=== PATIENT | male | born 1965 | race Caucasian/White ===

== ENCOUNTER 2017-03-21 12:57 | Outpatient (CLI) | payer OTHER | END 2017-03-21 12:58 | disposition home or self-care (01) | DX: S56.511A Strain of other extensor muscle, fascia and tendon at forearm level, right arm, initial encounter (principal); M67.921 Unspecified disorder of synovium and tendon, right upper arm ==

== ENCOUNTER 2017-03-25 13:06 | Outpatient (CLI) | payer OTHER ==
[2017-03-25] MEDS ORDERED: IOTHALAMATE MEGLUMINE 50 ML VIAL IVP ONE ×2 (14:25)
[2017-03-25] MEDS ORDERED: LIDOCAINE-MPF 1% 5 ML VIAL TD ONE ×2 (14:25)
[2017-03-25] MEDS ORDERED: BUFFERED LIDOCAINE 10 ML SYRINGE IU ONE (14:25)
[2017-03-25] MEDS ORDERED: GADOPENTETATE DIMEGLUMINE 5 ML VIAL IVP ONE ×2 (14:25)
== END 2017-03-25 13:07 | disposition home or self-care (01) ==
DX: R93.7 Abnormal findings on diagnostic imaging of other parts of musculoskeletal system (principal)
CPT/HCPCS: 20610; 73722; 77002; Q9961

== ENCOUNTER 2017-06-24 10:08 | Day surgery (SDC) | payer OTHER ==
[2017-06-24] MEDS ORDERED: LACTATED RINGERS 1,000 ML IV ONE (10:50)
[2017-06-24] MEDS ORDERED: MIDAZOLAM 2 MG/2 ML VIAL IVP ONE (11:05)
[2017-06-24] MEDS ORDERED: fentaNYL 100 MCG/2 ML VIAL IVP ONE (11:05)
[2017-06-24] MEDS ORDERED: LIDO GARGLE 30 ML BOTTLE TOP ONE (11:27)
[2017-06-24] MEDS ORDERED: BENZOCAINE/TETRACAINE/BUTAMBEN SPRAY 56 GM TOP ONE (11:27)
[2017-06-24 12:57] VITALS: BP 119/86
== END 2017-06-24 10:09 | disposition home or self-care (01) ==
LOC: SDS 10:08
PROVIDERS: ATTEND Surgery
PROC: 0DB78ZX Excision of Stomach, Pylorus, Via Natural or Artificial Opening Endoscopic, Diagnostic (ICD-10-PCS; 2017-06-24)
PROC: 0DJD8ZZ Inspection of Lower Intestinal Tract, Via Natural or Artificial Opening Endoscopic (ICD-10-PCS; principal; 2017-06-24 11:15)
PROC: 0DB38ZX Excision of Lower Esophagus, Via Natural or Artificial Opening Endoscopic, Diagnostic (ICD-10-PCS; 2017-06-24 11:15)
DX: Z12.11 Encounter for screening for malignant neoplasm of colon (principal); K57.30 Diverticulosis of large intestine without perforation or abscess without bleeding; K64.8 Other hemorrhoids; R12 Heartburn; K21.9 Gastro-esophageal reflux disease without esophagitis; K44.9 Diaphragmatic hernia without obstruction or gangrene; K20.9 Esophagitis, unspecified; K29.80 Duodenitis without bleeding
CPT/HCPCS: 43239; 45378; 87081; A9270; J7120; 88305

== ENCOUNTER 2017-08-06 06:21 | Day surgery (SDC) | payer OTHER ==
[2017-08-06] MEDS ORDERED: CELECOXIB 100 MG CAPSULE PO ONE (06:29)
[2017-08-06] MEDS ORDERED: ceFAZolin 2 GM/50 ML 2 GM/50 ML BAG IV ONE (06:29)
[2017-08-06] MEDS ORDERED: ACETAMINOPHEN 1,000 MG/100 ML 100 ML IV ONE ×2 (06:29→07:30)
[2017-08-06] MEDS ORDERED: LACTATED RINGERS 1,000 ML IV ONE (06:35)
[2017-08-06] MEDS ORDERED: ROCURONIUM 50 MG/5 ML VIAL IVP ONE (07:30)
[2017-08-06] MEDS ORDERED: fentaNYL 100 MCG/2 ML VIAL IVP ONE (07:30)
[2017-08-06] MEDS ORDERED: MIDAZOLAM 2 MG/2 ML VIAL IVP ONE (07:30)
[2017-08-06] MEDS ORDERED: PROPOFOL 200 MG/20 ML VIAL IVP ONE (07:30)
[2017-08-06] MEDS ORDERED: DEXAMETHASONE 4 MG/ML VIAL IVP ONE (07:30)
[2017-08-06] MEDS ORDERED: KETOROLAC 30 MG/ML VIAL IVP ONE (07:30)
[2017-08-06] MEDS ORDERED: SUCCINYLCHOLINE 200 MG/10 ML VIAL IVP ONE (07:30)
[2017-08-06] MEDS ORDERED: LIDOCAINE-MPF 2% 5 ML VIAL IM ONE (07:30)
[2017-08-06] MEDS ORDERED: ONDANSETRON 4 MG/2 ML VIAL IVP ONE (07:30)
[2017-08-06] MEDS ORDERED: BUPIVACAINE 0.5% PF 30 ML VIAL INFIL ONE ×2 (08:20→08:49)
[2017-08-06] MEDS: fentaNYL 100 MCG/2 ML VIAL ONE ×3 (09:37→09:50)
[2017-08-06 10:27] VITALS: BP 132/85
--- NOTE | 2017-08-06 13:40 | OPERATIVE REPORT ---
DATE OF SURGERY: 08/06/2017 00:00:00 OPERATIVE SURGEON: Commander Dayday Brown, [employer]. PROVER SURGEON: Lieutenant Commander Garrick Cheatham[employer]. PREOPERATIVE DIAGNOSES 1. Right olecranon spur. 2. Right triceps tendinosis. OPERATIVE DIAGNOSES 1. Right olecranon spur. 2. Right triceps tendinosis. OPERATIVE PROCEDURE PERFORMED: Open right olecranon spur excision, triceps exploration ANESTHESIA PROVIDER: Roberto Mistry CRNA. ANESTHESIA TECHNIQUE: General endotracheal tube anesthesia with local field block. CIRCULATING NURSES: Dayday Smith RN; and Ms. Catie Dial. DAY CARE WORKER: Ms. Danii Connelly RN. START TIME: 0814. END TIME: 08. INJECTED SUBSTANCES INCLUDE: Marcaine 0.5% plain 13 mL subcutaneously. INTRAVENOUS FLUIDS: 1200 mL of lactated Ringer's. PREOPERATIVE ANTIBIOTICS: Ancef 2 grams. ESTIMATED BLOOD LOSS: Less than 5 mL. PREOPERATIVE PREP: ChloraPrep. The patient had BALTAZAR hose and foot pumps in place and functioning prior to induction of anesthesia. TOURNIQUET TIME: 40 minutes at 250 mmHg. SPECIMEN SUBMITTED: Right olecranon spur. COMPLICATIONS: None. 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 The patient was counseled as far as the findings and options for operative versus nonoperative management, including the risks, benefits, alternatives, complications and expectations to both operative and nonoperative management. He preferred to have surgery. He previously had the left elbow done for the same diagnosis with good results. The patient gave informed consent. On the day of surgery, he identified the operative site to be his right elbow and was initialed by the operative surgeon. The patient was taken back to the operating room and placed in the supine position. He received his preoperative antibiotics and underwent general endotracheal tube anesthesia. Following adequate anesthetic control, the patient was placed into the left lateral decubitus position, ensuring his head, neck, groin and bony prominences were in a safe, well-padded position. Following this, the patient had a tourniquet placed to the right upper brachium. He underwent ChloraPrep, followed by standard sterile dressing draping and a surgical pause to confirm the proper patient, procedure, operative site, position, prophylactic antibiotics, surgical initials, and surgical instrumentation in accordance with universal protocol procedure verification. Following this, additional ChloraPrep was applied to the exposed operative skin, allowed to dry for 3 minutes. The bony landmarks were outlined. A curvilinear incision was outlined followed by Esmarch exsanguination of the right upper extremity with inflation of the tourniquet to 250 mmHg. This was followed by sharp curvilinear incision with Bovie electrocautery for hemostasis and blunt dissection down through the subcutaneous tissue and tricept tendon to the olecranon, where a needle tip Bovie was used for subperiosteal dissection to expose the loose olecranon spur. This was then excised, and the distal olecranon smoothed with a rasp. The triceps tendon was opened and explored. There was no significant tendinosis that required debridement. Fluoroscopy was then used to confirm adequate resection of the olecranon spur. Copious irrigation was then performed. The triceps tendon was closed with 2-0 Vicryl. The subcutaneous tissue was closed with 2-0 Vicryl followed by 3-0 Monocryl. The wound was then injected with 0.5% Marcaine plain, and covered with Mastisol, Steri-Strips, Xeroform, sterile plain gauze, sterile Webril and an Mj bandage. The tourniquet was then deflated at 40 minutes. The patient was then returned to the supine position, extubated, and taken to recovery in stable condition. He tolerated the procedure well. His was contacted via telephone regarding the intra- operative findings and post-op instructions. Edited and electronically signed: CDR Dayday Brown [employer], [employer] [id number] JOB #: [id number] EXT JOB #:[id number] CYNTHIA
== END 2017-08-06 06:22 | disposition home or self-care (01) ==
LOC: SDS 06:21
PROVIDERS: ATTEND Orthopaedic Surgery
PROC: 0PBH0ZZ Excision of Right Radius, Open Approach (ICD-10-PCS; principal; 2017-08-06 07:30)
DX: M25.721 Osteophyte, right elbow (principal); S46.312A Strain of muscle, fascia and tendon of triceps, left arm, initial encounter
CPT/HCPCS: 24147; A9270; J0131; J0690; J7120

== ENCOUNTER 2017-09-30 13:04 | Outpatient (CLI) | payer OTHER | END 2017-09-30 13:05 | disposition home or self-care (01) | LOC: SC 13:04 | PROVIDERS: ATTEND Internal Medicine Pulmonary Disease | DX: G47.33 Obstructive sleep apnea (adult) (pediatric) (principal) | CPT/HCPCS: 99203; 99212 ==

== ENCOUNTER 2017-11-17 09:13 | Outpatient (CLI) | payer OTHER | END 2017-11-17 09:14 | disposition home or self-care (01) | LOC: SC 09:13 | PROVIDERS: ATTEND Internal Medicine Pulmonary Disease | DX: G47.33 Obstructive sleep apnea (adult) (pediatric) (principal) | CPT/HCPCS: 99212; 99213 ==

== ENCOUNTER 2018-07-03 08:34 | Outpatient (CLI) | payer OTHER ==
--- NOTE | 2018-07-03 16:23 | MRI Report ---
Reason: PAIN IN RIGHT ELBOW Procedure Date: 07/03/2018 Accession Number: [id number] / [id number] Procedure: MRI - Elbow RT W/O CPT Code: FULL RESULT: EXAM: RIGHT ELBOW MRI WITHOUT CONTRAST EXAM DATE: 07/03/2018 08:51 AM. CLINICAL HISTORY: Post surgery. Patient reports bone spur removal 07/06/2017. COMPARISON: MRI 03/21/2017 and radiographs 08/16/2016. TECHNIQUE: Multiplanar, multisequence T1-weighted and fluid-sensitive sequences of the elbow without contrast. Other: None. FINDINGS: Bones: No fracture or bone lesion. Mild bone marrow edema and reactive cyst at the posterior medial aspect of the capitellum. This involves a region measuring 0.8 cm AP and is increased in conspicuity. Subtle osteophyte at the posterior margin of this site. Mild bone marrow edema at the posterior medial aspect of the olecranon, slightly increased. Articular Cartilage: Diffuse deep partial-thickness cartilage loss throughout the joint. Small ulnar trochlear osteophytes. Ligaments: Ulnar collateral, radial collateral, and annular ligaments are intact. Distortion and fluid sensitive hyperintense signal at the humeral insertion lateral ulnar collateral ligament (coronal images 16, 17, and 18 of series 901). Tendons: Ulnar collateral ligament normal in morphology. Mild thickening and subtle hyperintense signal at the common extensor tendon origin, slightly decreased in conspicuity. Biceps and brachialis tendons are intact. Moderate thickening, fluid sensitive hyperintense signal, and distortion at the triceps tendon extending from the myotendinous junction to the insertion. The lateral 50% of the tendon fibers appear intact at the insertion. Disruption of the medial 50% of the insertion with the free end of the fibers located 0.5 cm from the olecranon (axial image 17 of series 601). Musculature: No fatty atrophy. Minimal edema in the distal triceps muscle. Other: The cubital tunnel and ulnar nerve are unremarkable. Minimal joint effusion. Minimal subcutaneous edema over the posterior and medial aspect of the joint. IMPRESSION: 1. Moderate triceps tendinopathy with disruption of the medial 50% of the fibers at the insertion. 2. Slightly increased bone marrow edema at the olecranon. This may be postsurgical and/or reactive. 3. [id number] degenerative changes with slightly increased bone marrow edema and cystic changes at the capitellum. 4. Minimal joint effusion. 5. Mild common extensor tendinopathy and minimal intrasubstance tearing. 5. Reactive edema versus strain at the humeral insertion lateral ulnar collateral ligament. RADIA MUSCULOSKELETAL RADIOLOGY SECTION
== END 2018-07-03 08:35 | disposition home or self-care (01) ==
LOC: DI 08:34
PROVIDERS: ATTEND Student in an Organized Health Care Education/Training Program
DX: M19.021 Primary osteoarthritis, right elbow (principal); M67.921 Unspecified disorder of synovium and tendon, right upper arm

== ENCOUNTER 2018-09-03 11:08 | Day surgery (SDC) | payer OTHER ==
[~2018-09-03 11:08] MED LIST: ceFAZolin 2 GM/50 ML 2 GM/50 ML BAG IV ONE
[2018-09-03] MEDS ORDERED: LACTATED RINGERS 1,000 ML IV ONE ×3 (11:29→14:55)
--- NOTE | 2018-09-03 11:32 | ANESTHESIA ---
Pre-Anesthesia VS, & Labs - Diagnosis Right triceps rupture - Procedure Right triceps repair Vital Signs: Temp Pulse Resp BP Pulse Ox 36.4 C L 82 15 126/93 H 98 09/03/18 11:15 09/03/18 11:15 09/03/18 11:15 09/03/18 11:15 09/03/18 11:15 Height 6 ft 2 in Weight (kg) 112.04 kg Home Medications and Allergies Omeprazole [PriLOSEC] 20 mg PO DAILY 08/04/17 Allergies/Adverse Reactions: Allergies Allergy/AdvReac Type Severity Reaction Status Date / Time No Known Drug Allergies Allergy Verified 08/04/17 09:45 Anes History & Medical History - Anesthetic History Anesthesia Complications: reports: No previous complications Family history of Anesthesia Complications: Denies Family history of Malignant Hyperthermia: Denies - Medical History Cardiovascular: reports: None Pulmonary: reports: Sleep apnea, CPAP use Gastrointestinal: reports: GERD, Colon polyps Urinary: reports: None Musculoskeletal: reports: Other Endocrine/Autoimmune: reports: None Blood Disorders: reports: None Skin: reports: None Smoking Status: Never smoker Psychosocial: reports: No issues indicated - Surgical History General: EGD Eyes Ears Nose Throat (EENT): Tonsil/Adenoidectomy, Other Orthopedic: Arthroscopic surgery, Other Exam General: Alert, Other (History TMJ with dislocation) Dental: WNL Neck Mobility: Normal Thyromental Distance: greater than 6 cm Respiratory: Lungs clear Cardiovascular: Regular rate Neurological: Normal speech Mental/Cognitive Status: Alert/Oriented X3 Cognitive Status: Within normal limits Plan Anesthesia Type: General Consent for Procedure(s) Verified and Reviewed: Yes Code Status: Attempt Resuscitation ASA classification: 1-Healthy patient Is this case an emergency?: No
[2018-09-03] MEDS ORDERED: BUPIVACAINE 0.25% PF 30 ML VIAL ONE (12:26)
[2018-09-03] MEDS ORDERED: NEOSTIGMINE 1 MG/1 ML 10 ML MDV IVP ONE (13:33)
[2018-09-03] MEDS ORDERED: LABETALOL 5 MG/1 ML 20 ML MDV IV ONE (13:33)
[2018-09-03] MEDS ORDERED: fentaNYL 250 MCG/5 ML VIAL IVP ONE (13:33)
[2018-09-03] MEDS ORDERED: LIDOCAINE-MPF 2% 5 ML VIAL IM ONE (13:33)
[2018-09-03] MEDS ORDERED: PROPOFOL 200 MG/20 ML VIAL IVP ONE (13:33)
[2018-09-03] MEDS ORDERED: MIDAZOLAM 2 MG/2 ML VIAL IVP ONE (13:33)
[2018-09-03] MEDS ORDERED: ONDANSETRON 4 MG/2 ML VIAL IVP ONE (13:33)
[2018-09-03] MEDS ORDERED: ROCURONIUM 50 MG/5 ML VIAL IVP ONE (13:33)
[2018-09-03] MEDS ORDERED: KETOROLAC 30 MG/ML VIAL IVP ONE (13:33)
[2018-09-03] MEDS ORDERED: GLYCOPYRROLATE 1 MG/5 ML VIAL IVP ONE (13:33)
[2018-09-03] MEDS ORDERED: BUPIVACAINE 0.25% PF 30 ML VIAL SUBQ ONE ×2 (13:37)
[2018-09-03] MEDS ORDERED: oxyCODONE 5 MG TABLET PO PRN (15:02)
[2018-09-03] MEDS ORDERED: ONDANSETRON 4 MG/2 ML VIAL IVP PRN (15:02)
--- NOTE | 2018-09-03 15:20 | OPERATIVE REPORT ---
Operative Report - General Procedure Date: 09/03/18 Planned Procedure: Right Triceps Tendon Medial Head Repair Pre-Op Diagnosis: Right Triceps Tendinopathy with possible tear Procedure Performed: Medial head of triceps tendon debridement Post Op Diagnosis: Right Triceps Tendinopathy - Procedure Note Primary Surgeon: Garrick Cheatham Secondary Surgeon: Ron Freire Estimated Blood Loss (mL): 20 - Other Other Information/Narrative: Indication For Surgery: This is a 53M with a long history of triceps tendinopathy. He had an olecranon spur excision done 1 year ago but has had continued medial sided pain with resistance activities. On the contralateral side, he had the same surgery but was doing well. MRI showed potentially a medial head tendon tear and a repair v debridment was planned. The risks, benefits, and alternatives were discussed. Risks include pain, bleeding, infection, damage to nearby structures and cartilage, lack of symptom relief, need for further surgery, DVT, PE, stroke, and . Written consent was obtained. Tourniquet Time: 53 minutes Procedure in Detail: The patient was met in the pre-operative hold area on the day of the procedure. The operative extremity was signed and questions were answered. The patient was brought to the operating room and a general anesthetic was administered. lateral position with a lassiter bag was used, axillary roll was placed, and bony prominences were padded. Standard prepping and draping was performed. A time out confirmed patient identification, laterality, procedure, allergies, antibiotics, and images An esmarch was used to exanguinate the limb and the tourniquet was elevated to 25mm of mercury. I used the prior incision and extended it 1cm on each side. Sharp dissection was brought down through the bursa and to the level of the tendon. Extensive scarred tissue was seen and this was carefully dissected. off the tendon. I carried the medial dissection around to to the ulnar nerve with scissors and carefully opened the sheath to confirm position and safety during the surgery. I then used blunt dissection to evaluate the insertion of the medial head on the anterior border near the joint. The insertion was intact on the deep part of the tendon. The medial tendon was thickened and tendinotic. I made a split centrally in the tendon and it was apparent that the unhealthy superficial portion of the tendon had delaminated from the healthier, deep portion of the tendon. I then sharply dissected all all tendinotic tissue. The muscle attachment to the tendon and the tendon attachment to the bone remained intact. I used the scratch technique to ensure all unhealthy tendon had been debrided up to the musculotendinous junction. He was then irrigated copiously and a layered closure was performed with 0 vicryl in the bursa, 2-0 vicryl in the dermis, and 3-0 nylon in the skin. 10cc of .25% marcaine was placed near the wound and a sterile dressing was applied. He was awakened and transferred to recovery.
[2018-09-03] MEDS ORDERED: oxyCODONE 5 MG TABLET ONE (15:43)
[2018-09-03 16:08] VITALS: BP 117/60
== END 2018-09-03 11:09 | disposition home or self-care (01) ==
LOC: SDS 11:08
PROVIDERS: ATTEND Orthopaedic Surgery
PROC: 0LB30ZZ Excision of Right Upper Arm Tendon, Open Approach (ICD-10-PCS; principal; 2018-09-03 12:00)
DX: M67.921 Unspecified disorder of synovium and tendon, right upper arm (principal)
CPT/HCPCS: 11043; A9270; J0690; J3010; J7120

== ENCOUNTER 2020-07-03 17:38 | Emergency (ER) | payer OTHER ==
[2020-07-03] MEDS ORDERED: PROPARACAINE 0.5% OPHTH DROPS 15 ML LEFTEYE STA (17:40)
[2020-07-03 17:56] VITALS: BP 141/86
[2020-07-03] MEDS ORDERED: ERYTHROMYCIN OPHTH OINT 1 GM TUBE LEFTEYE STA (18:02)
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
== END 2020-07-03 18:10 | disposition home or self-care (01) ==
LOC: ED 17:38
DX: S05.02XA Injury of conjunctiva and corneal abrasion without foreign body, left eye, initial encounter (principal); W22.8XXA Striking against or struck by other objects, initial encounter; Y93.H9 Activity, other involving exterior property and land maintenance, building and construction; Y92.007 Garden or yard of unspecified non-institutional (private) residence as the place of occurrence of the external cause
CPT/HCPCS: 99282; 99283; J3490